=== PATIENT | female | born 1990 | race Asian ===

== ENCOUNTER 2022-09-30 14:25 | Emergency (ER) | payer OTHER ==
[2022-09-30 14:43] VITALS: BP 140/90
--- NOTE | 2022-09-30 16:28 | ED Physician Documentation ---
PD HPI OPHTHO - Stated complaint Stated Complaint: L EYE IRRITATION,SWELLING - Chief complaint Chief Complaint: Heent - History obtained from History obtained from: Patient - History of Present Illness Timing - onset: How many days ago (2) Timing - duration: Days (2) Timing - details: Abrupt onset Location: Left Quality / character: Aching Associated symptoms: Redness, Tearing, FB sensation. No: Discharge Contributing factors: No: Wears contacts - Additional information Additional information: Patient is a 32-year-old female who presents to the emergency department left eye irritation. She states this started about 2 days ago when she was outside with her children. She states that she does have tearing and a foreign body sensation no discharge there is redness to the eye. Does not wear contacts. S he has been putting artificial tears in her eyes, refresh drops without any astringents. No vision changes. Worse with opening her eye, better with closing her eye. She felt like something struck her eye when she was outside. Review of Systems Constitutional: denies: Fever PD PAST MEDICAL HISTORY - Past Medical History Past Medical History: No - Past Surgical History Past Surgical History: No - Allergies Allergies/Adverse Reactions: Allergies Allergy/AdvReac Type Severity Reaction Status Date / Time No Known Drug Allergies Allergy Verified 09/30/22 14:39 - Living Situation Living Arrangement: reports: At home - Social History Does the pt have substance abuse?: No PD ED PE NORMAL - Vitals Vital signs reviewed: Yes - General General: Alert and oriented X 3, No acute distress - HEENT HEENT: Moist mucous membranes, Other (Right eye is normal. Left eye does show conjunctival injection. No fluorescein uptake. Eyelids everted with no foreign bodies visible. No corneal ulcerations. Pain resolved with proparacaine. normal exam of the eyelids) - Neck Neck: Supple, no meningeal sign - Cardiac Cardiac: RRR - Respiratory Respiratory: No respiratory distress, Clear bilaterally - Derm Derm: Warm and dry - Neuro Neuro: Alert and oriented X 3 Results - Vitals Vitals: Vital Signs - 24 hr 09/30/22 14:39 Temperature 36.5 C Heart Rate 88 Respiratory 16 Rate Blood Pressure 140/90 H O2 Saturation 98 Oxygen O2 Source Room air PD Medical Decision Making - ED course Complexity details: re-evaluated patient, considered differential, d/w patient ED course: 32-year-old female with left eye conjunctival irritation, symptoms resolved with proparacaine. No abnormalities on fluorescein uptake. Eyelids everted with no foreign body seen. The eye was irrigated and she states that her eye feels better. She is able to open the eye without difficulty. There is no drainage. No evidence of ulcerations or abrasions. We will have her continue supportive care at home and if she fails to improve, she will follow-up with ophthalmology. Patient counseled regarding signs and symptoms for which I believe and urgent re-evaluation would be necessary. Patient with good understanding of and agreement to plan and is comfortable going home at this time This document was made in part using voice recognition software. While efforts are made to proofread this document, sound alike and grammatical errors may occur. Departure - Departure Disposition: 01 Home, Self Care Clinical Impression: Irritation of left eye Condition: Good Instructions: ED Eye Particle Conjunctiva FB Rslv Follow-Up: Gautam Cartagena MD [Provider Admit Priv/Credential] - Comments: Please follow-up with ophthalmology if your symptoms persist longer than today. Do not see any abrasions or foreign body on evaluation of your eye today. There are no ulcerations. We did irrigate your eye today as well. Forms: PCP List
== END 2022-09-30 16:47 | disposition home or self-care (01) ==
LOC: ED 14:25
DX: H57.89 Other specified disorders of eye and adnexa (principal)
CPT/HCPCS: 99281; 99282